=== PATIENT | female | born 1995 | race Caucasian/White ===

== ENCOUNTER 2017-02-19 15:20 | Emergency (ER) | payer OTHER ==
[~2017-02-19] VITALS: Ht 160 cm; Wt 62.0 kg
[2017-02-19 15:22] VITALS: BP 155/96; PULSE 71; RESP 17; TEMP 99.1; O2SAT 98
--- NOTE | 2017-02-19 16:08 | PD ---
Physical Exam Date Seen by Provider: February 19, 2017 Time Seen by Provider: 16:06 Narrative 21 y/o female with 3 days of worsening RLQ PAIN AND CHILLS WELL NAUSEA AND SOME DIARRHEA. No Vomiting. Denies . No Urinary of Vaginal Symptoms. Pain worse with Movement and riding in car. Hx Appendectomy. Hx ? Volvulous in 3rd grade. V/S Stable Awaiting Bed Placement. Data Data Last Documented VS Vital Signs Date Time Temp Pulse Resp B/P Pulse Ox O2 Delivery O2 Flow Rate FiO2 02/19/17 15:22 99.1 71 17 155/96 98 MDM Medical Record Reviewed: Yes Supervised Visit with CANDIDO: Yes Condition: Stable Stephen Gaxiola February 19, 2017 16:08
[2017-02-19 16:52] LABS: AUTOMATED NEUTROPHIL # 9.7 TH/MM3 (1.8-7.7); BASOPHIL # 0.1 TH/MM3 (0-0.2); EOSINOPHIL # 0.1 TH/MM3 (0-0.4); EOSINOPHIL % 0.8 % (0.0-4.0); HEMATOCRIT 42.7 % (35.0-46.0); HEMO FLAGS DIFF FINAL; LYMPHOCYTE # 1.5 TH/MM3 (1.0-4.8); MEAN CELL VOLUME 85.4 FL (80.0-100.0); MEAN CORPUSCULAR HGB CONC 32.8 % (32.0-36.0); NEUT % 80.2 % (16.0-70.0); PLATELET COUNT 399 TH/MM3 (150-450); RED BLOOD COUNT 5.01 MIL/MM3 (4.00-5.30); RED CELL DISTRIBUTION WIDTH 12.6 % (11.6-17.2); WHITE BLOOD COUNT 12.1 TH/MM3 (4.0-11.0)
[2017-02-19 16:56] LABS: BLOOD, URINE SMALL (NEG); COMMENT (UR) CULT NOT INDICATED; CULTURE IF INDICATED CULT NOT INDICATED; GLUCOSE,URINE NEG (NEG); KETONE, URINE NEG (NEG); MUCUS URINE FEW /lpf (OCC); NITRITE,URINE NEG (NEG); PH, URINE 5.5 (5.0-8.5); SQUAMOUS EPITHELIAL CELL URINE 1 /hpf (0-5); URINE COLOR YELLOW (YELLW/STRAW)
[2017-02-19 17:12] LABS: BICARBONATE 29.3 MEQ/L (21.0-32.0); POTASSIUM 3.7 MEQ/L (3.5-5.1)
[2017-02-19] MEDS ORDERED: SODIUM CHLOR 0.9% 1000 ML INJ 1,000 ML IV SCH (17:12)
[2017-02-19] MEDS ORDERED: SODIUM CHLORIDE 0.9% FLUSH 10 ML FLUSH IV FLUSH PRN (17:15)
[2017-02-19] MEDS ORDERED: ONDANSETRON HCL 4 MG/2 ML VIAL IVP ONE (17:15)
--- NOTE | 2017-02-19 17:16 | PD ---
HPI Chief Complaint: Abdominal Pain Time Seen by Provider: 17:16 Travel History International Travel<30 days: No Contact w/Intl Traveler<30days: No Traveled to known affect area: No History of Present Illness HPI 21-year-old female presents to the emergency department for evaluation of abdominal pain with diarrhea. The patient states that for the past 2-3 days she has had multiple episodes of diarrhea and subjective fever and chills. States that today she began to have sharp lower abdominal pain, in both right and left lower quadrants. States that the pain is intermittent and comes in waves. States that earlier today the pain was a 10 on a scale of 1-10 and is now 5 on a scale of 1-10. She complains of nausea but no vomiting. States that she has had 2 prior abdominal surgeries, states that when she was a child she had a twisted colon and they removed part of her colon, is unsure whether she had her appendix removed. States that she then also had a laparoscopic surgery for reevaluation after this initial surgery. She denies , she has not given her menstrual cycle as she has the Implanon device. She is sexually active without the use of protection. Denies any vaginal discharge, dysuria, cough or cold symptoms. No other complaints. PFSH Past Medical History Medical History: Denies Significant Hx ?: Not Past Surgical History Abdominal Surgery: Yes (intestinal surgery volvulus) Eye Surgery: Yes (eyelid surgery) Social History Alcohol Use: No Tobacco Use: No Substance Use: No Allergies-Medications (Allergen,Severity, Reaction): Coded Allergies: No Known Allergies (Unverified , 02/19/17) Reported Meds & Prescriptions Reported Meds & Active Scripts Active Bentyl (Dicyclomine HCl) 20 Mg Tab 20 Mg PO TID PRN 5 Days Review of Systems Except as stated in HPI: all other systems reviewed are Neg Physical Exam Narrative GENERAL: Well-nourished and well-developed pleasant female patient in no acute distress who is nontoxic appearing. SKIN: Warm and dry. HEAD: Normocephalic and atraumatic. EYES: No injection, drainage, or hyphema noted. PERRLA. EOMI. ENT: No nasal drainage noted. Oropharynx is clear. NECK: Supple and the trachea is midline. CARDIOVASCULAR: Regular rate and rhythm. RESPIRATORY: Breath sounds are equal bilaterally with no accessory muscle use, wheezing, rhonchi, or crackles. GASTROINTESTINAL: Left lower quadrant tenderness to palpation. Negative McBurney's point. Negative Graves's sign. Abdomen is soft and nondistended. GENITOURINARY: Normal external genitalia without lesions or erythema. Vaginal vault with thick yellow discharge. Cervical os was closed. No cervical motion tenderness. Uterus nontender and nonenlarged. Bilateral adnexa nontender without masses. Performed in the presence of Shari NAVARRETE. MUSCULOSKELETAL: No obvious deformities, swelling, cyanosis, or ecchymosis is present throughout the upper and lower extremities. Patient has full range of motion without any signs of neurovascular compromise. NEUROLOGICAL: Awake, alert, and oriented. Normal speech and gait. Cranial nerves are grossly intact. Data Data Last Documented VS Vital Signs Date Time Temp Pulse Resp B/P Pulse Ox O2 Delivery O2 Flow Rate FiO2 02/19/17 17:20 77 16 99 02/19/17 15:22 99.1 155/96 Orders Basic Metabolic Panel (Bmp) (02/19/17 16:12) Complete Blood Count With Diff (02/19/17 16:12) Urinalysis - C+S If Indicated (02/19/17 16:12) Ed Urine Pregnancytest Poc (02/19/17 16:12) Ct Abd/Pel W Iv Contrast(Rout) (02/19/17 17:12) Iv Access Insert/Monitor (02/19/17 17:12) Ecg Monitoring (02/19/17 17:12) Oximetry (02/19/17 17:12) Ondansetron Inj (Zofran Inj) (02/19/17 17:15) Sodium Chlor 0.9% 1000 Ml Inj (Ns 1000 M (02/19/17 17:12) Sodium Chloride 0.9% Flush (Ns Flush) (02/19/17 17:15) Azithromycin (Zithromax) (02/19/17 17:45) Ceftriaxone Inj (Rocephin Inj) (02/19/17 17:45) Gc And Chlamydia Pcr (02/19/17 17:51) Wet Prep Profile (02/19/17 17:51) Iohexol 350 Inj (Omnipaque 350 Inj) (02/19/17 18:39) Labs Laboratory Tests Test 02/19/17 02/19/17 16:30 17:40 White Blood Count 12.1 TH/MM3 Red Blood Count 5.01 MIL/MM3 Hemoglobin 14.0 GM/DL Hematocrit 42.7 % Mean Corpuscular Volume 85.4 FL Mean Corpuscular Hemoglobin 28.0 PG Mean Corpuscular Hemoglobin 32.8 % Concent Red Cell Distribution Width 12.6 % Platelet Count 399 TH/MM3 Mean Platelet Volume 7.5 FL Neutrophils (%) (Auto) 80.2 % Lymphocytes (%) (Auto) 12.0 % Monocytes (%) (Auto) 6.0 % Eosinophils (%) (Auto) 0.8 % Basophils (%) (Auto) 1.0 % Neutrophils # (Auto) 9.7 TH/MM3 Lymphocytes # (Auto) 1.5 TH/MM3 Monocytes # (Auto) 0.7 TH/MM3 Eosinophils # (Auto) 0.1 TH/MM3 Basophils # (Auto) 0.1 TH/MM3 CBC Comment DIFF FINAL Differential Comment Urine Color YELLOW Urine Turbidity CLEAR Urine pH 5.5 Urine Specific Calcium 1.031 Urine Protein NEG mg/dL Urine Glucose (UA) NEG mg/dL Urine Ketones NEG mg/dL Urine Occult Blood SMALL Urine Nitrite NEG Urine Bilirubin NEG Urine Urobilinogen LESS THAN 2.0 MG/DL Urine Leukocyte Esterase NEG Urine RBC 4 /hpf Urine WBC 1 /hpf Urine Squamous Epithelial 1 /hpf Cells Urine Mucus FEW /lpf Microscopic Urinalysis Comment CULT NOT INDICATED Sodium Level 141 MEQ/L Potassium Level 3.7 MEQ/L Chloride Level 106 MEQ/L Carbon Dioxide Level 29.3 MEQ/L Anion Gap 6 MEQ/L Blood Urea Nitrogen 17 MG/DL Creatinine 0.77 MG/DL Estimat Glomerular Filtration 96 ML/MIN Rate Random Glucose 90 MG/DL Calcium Level 9.0 MG/DL Clue Cells (Wet Prep) NONE SEEN Vaginal Trichomonas (Wet Prep) NONE SEEN Vaginal Yeast (Wet Prep) NONE SEEN MDM Medical Decision Making Medical Screen Exam Complete: Yes Emergency Medical Condition: Yes Differential Diagnosis Colitis versus gastroenteritis versus appendicitis versus PID Narrative Course 21-year-old female presents to the emergency department for evaluation of abdominal pain with diarrhea and subjective fevers. Patient is afebrile, vital signs are stable. She does have some tenderness to palpation of left lower quadrants. No peritoneal signs. She does have thick vaginal discharge on examination but no cervical motion tenderness. Patient is treated prophylactically for gonorrhea and chlamydia with Rocephin 1 g IV and Zithromax 1 g orally. IV access is obtained, labs were drawn and sent. Patient is administered IV fluids and Zofran. ED urine test is negative. CBC shows an elevated white blood count of 12.1, otherwise unremarkable. BMP is unremarkable. Urinalysis shows small occult blood, 4 red blood cells, few mucus. Wet prep is negative. Gonorrhea and chlamydia is pending. CT the abdomen and pelvis shows nonspecific mild periportal edema in the liver, no acute inflammatory changes identified within the abdomen and pelvis. Appendix does not appear to be enlarged but there is a questionable small appendicolith. The patient has no right upper quadrant tenderness to palpation and therefore I do not suspect a hepatitis. I suspect that the patient's abdominal pain and diarrhea is likely viral in etiology. She may also have an STI. Discussed signs and symptoms and when to return to the emergency department. Advised to follow-up with her PCP. Patient verbalizes understanding and agreement with treatment plan. I discussed the case with my attending physician Dr. Larios who is aware of the patients history, physical examination findings, and treatment plan. Diagnosis Primary Impression: Abdominal pain Qualified Code: R10.30 - Lower abdominal pain Additional Impression: Diarrhea Qualified Code: R19.7 - Diarrhea, unspecified type Referrals: Primary Care Physician Patient Instructions: Abdominal Pain (ED), Acute Diarrhea (ED), General Instructions Departure Forms: Tests/Procedures, Work Release Enter return to work date: February 21, 2017 Additional Instructions: Rest. Drink plenty of fluids. Take medication as prescribed. Follow-up with your Primary Care Physician. Return to the ED for any acute worsening of symptoms. Med/Other Pt SpecificInfo: Prescription(s) given Scripts Dicyclomine (Bentyl)20 Mg Tab20 Mg PO TID PRN (Bowel Management) 5 Days Ref 0 Prov:Fely Larios MD 02/19/17 Disposition: 01 DISCHARGE HOME Condition: Stable [place] February 19, 2017 17:16
[2017-02-19 17:20] VITALS: PULSE 77; RESP 16; O2SAT 99
[2017-02-19] MEDS ORDERED: AZITHROMYCIN 250 MG TAB PO ONE (17:45)
[2017-02-19] MEDS ORDERED: cefTRIAXone INJ 1,000 MG in SODIUM CHLORIDE 0.9% INJ 100 ML IV ONE (17:45)
[2017-02-19] MEDS ORDERED: IOHEXOL 350 MG/ML 10 ML VIAL (for RAD DIAG) IV ONE (18:39)
--- NOTE | 2017-02-19 19:08 | RADRPT ---
EXAM DATE/TIME: 02/19/2017 18:23 [facility] COMPARISON: No previous studies available for comparison. INDICATIONS : Mid to right lower qaudrant pain. IV CONTRAST: 70 cc Omnipaque 350 (iohexol) IV ORAL CONTRAST: No oral contrast ingested. RADIATION DOSE: 4.82 CTDIvol (mGy) MEDICAL HISTORY : None SURGICAL HISTORY : None. ENCOUNTER: Initial ACUITY: 2 days PAIN SCALE: 6/10 LOCATION: Right lower quadrant TECHNIQUE: Volumetric scanning of the abdomen and pelvis was performed. Using automated exposure control and ad justment of the mA and/or kV according to patient size, radiation dose was kept as low as reasonably achievable to obtain optimal diagnostic quality images. FINDINGS: Lung bases are clear. Mild periportal edema in the liver. Spleen, adrenals, kidneys and pancreas unre markable. Gallbladder is contracted. The appendix is difficult to visualize but does not appear to be enlarged. It may be a small appendicolith. No free fluid or free air. No bowel obstruction. No adenopathy. CONCLUSION: 1. Nonspecific mild periportal edema in the liver. Differential diagnosis includes hepatitis. 2. No acute inflammatory changes identified within the abdomen and pelvis. Appendix does not appear t o be enlarged but there is a questionable small appendicolith. Rush Martinez MD on February 19, 2017 at 19:01 Board Certified Radiologist. This report was verified electronically.
[2017-02-19] MEDS ORDERED: BENT20TA PO (19:30)
[2017-02-19] MEDS ORDERED: DICYCLOMINE HCL 10 MG CAP PO ONE (19:45)
[2017-02-19 19:51] VITALS: BP 101/75
[2017-02-19 20:46] LABS: CHLAMYDIA PCR NOT DETECTED (NOT DETECT); NEISSERIA PCR NOT DETECTED (NOT DETECT)
== END 2017-02-19 20:01 | disposition home or self-care (01) ==
LOC: NEPD 15:20
DX: R10.30 Lower abdominal pain, unspecified (principal); R19.7 Diarrhea, unspecified
CPT/HCPCS: 74177; 80048; 81001; 84703; 85025; 87210; 87491; 87591; 96361; 96365; 96375; 99285; J0696; J2405; J7030; Q9967